=== PATIENT | female | born 1980 | race Caucasian/White ===

== ENCOUNTER 2018-08-15 11:45 | Inpatient (IN) ==
[2018-08-15] MEDS ORDERED: diphenhydrAMINE 50 MG/1 ML VIAL IM STA (12:03)
[2018-08-15] MEDS ORDERED: LORazepam 2 MG/1 ML VIAL IM STA (12:03)
[2018-08-15] MEDS ORDERED: SODIUM CHLORIDE 0.9% 1,000 ML IV STA (12:03)
[2018-08-15] MEDS ORDERED: HALOPERIDOL 5 MG/ML AMP IM STA (12:03)
[2018-08-15] MEDS ORDERED: CEFTAROLINE 600 MG in SODIUM CHLORIDE 0.9% 100 ML IV STA (12:23)
[2018-08-15 13:45] LABS: Basophils % 0.4 % (0.0-0.8); Eosinophils # 0.3 10*3/uL (0.0-0.87); Eosinophils % 3.1 % (0.00-10.9); Hematocrit 36.5 VOL% (35.7-47.0); Hemoglobin 11.9 GM/DL (12.0-16.0); Immature Granulocytes % 0.4 %; Immature Granulocytes Absolute 0.04 #; Lymphocytes # 2.1 10*3/uL (1.4-4.0); Lymphocytes % 21.3 % (21.3-54.2); Mean Corpuscular HGB Conc 32.6 GM/DL (32-36); Mean Corpuscular Hemoglobin 29 PG (27-34); Mean Corpuscular Volume 90.1 FL (87-102); Mean Platelet Volume 11.3 FL (9.6-12.0); Monocytes # 0.8 10*3/uL (0.11-0.8); Neutrophils # 6.4 10*3/uL (1.4-7.4); Neutrophils % 66.8 % (38.7-73.9); Platelet Count 367 T/CUMM (130-400); Red Blood Count 4.05 MC/CUMM (3.8-5.5); Red Cell Distribution Width 13.7 % (9.3-17.3); White Blood Count 9.6 T/CUMM (4-12)
[2018-08-15 14:00] LABS: Ammonia 26 UMOL/L (11-32)
[2018-08-15 14:12] LABS: Alanine Aminotransferase 14 U/L (13-56); Albumin 3.3 G/DL (3.4-5.0); Alkaline Phosphatase 65 U/L (45-117); Aspartate Amino Transferase 10 U/L (0-37); Blood Urea Nitrogen 15 MG/DL (7-18); Calcium 8.3 MG/DL (8.5-10.1); Glucose 85 MG/DL (74-106); Total Protein 7.1 G/DL (6.4-8.3)
[2018-08-15 14:13] LABS: Osmolality,Calculated 280.3 MOS/KG (273-304); Potassium 3.4 MMOL/L (3.5-5.1); Sodium 141 MMOL/L (136-145)
[2018-08-15 14:26] LABS: Barbiturates Screen,Urine Negative (Negative); Benzodiazepines Screen,Urine Negative (Negative); Cannabinoid Screen,Urine Negative (Negative); Opiate Screen,Urine Negative (Negative); Phencyclidine Screen,Urine Negative (Negative)
[2018-08-15] MEDS ORDERED: ACETAMINOPHEN 325 MG TABLET PO PRN (14:54)
[2018-08-15] MEDS ORDERED: ALBUTEROL 2.5 MG/3 ML NEB RESP TX PRN (14:54)
[2018-08-15] MEDS ORDERED: ONDANSETRON 4 MG/2 ML VIAL IV PRN (14:54)
[2018-08-15] MEDS ORDERED: LACTULOSE 20 GM/30 ML UDCUP PO PRN (14:54)
[2018-08-15] MEDS ORDERED: LORazepam 2 MG/1 ML VIAL IV PRN (15:19)
[2018-08-15] MEDS ORDERED: PANTOPRAZOLE 40 MG VIAL IV SCH (16:00)
[2018-08-15] MEDS: SODIUM CHLORIDE 0.9% 1,000 ML IV SCH (16:27)
[2018-08-15] MEDS ORDERED: HALOPERIDOL 5 MG TABLET PO SCH (21:00)
[2018-08-15 21:25] LABS: Apearance,Urine CLEAR (Clear); Bacteria,Urine Occasional /HPF (Few); Bilirubin,Urine Negative (Negative); Blood, Urine Negative (Negative); Glucose,Urine (UA) Negative (Negative); Ketones,Urine 20 mg/dL (Negative); Mucus,Urine Occasional /LPF (Occasional); Nitrite,Urine Negative (Negative); Protein,Urine Negative; RBC,Urine <1 /HPF (0-4); Squamous Epithelial Cell,Urine Occasional /HPF (0-10); Urine Color Yellow (Yellow); Urine Specific Gravity 1.023 (1.001-1.035); WBC,Urine 3 /HPF (0-6)
[2018-08-15] MEDS: ENOXAPARIN 40 MG/0.4 ML SYRINGE SUBCUT SCH (21:36)
[2018-08-16] MEDS: SODIUM CHLORIDE 0.9% 1,000 ML IV SCH ×3 (01:31→22:00)
[2018-08-16] MEDS: CEFTAROLINE 600 MG in SODIUM CHLORIDE 0.9% 100 ML IV SCH ×2 (02:51→15:34)
[2018-08-16 03:30] LABS: Basophils % 0.4 % (0.0-0.8); Eosinophils # 0.3 10*3/uL (0.0-0.87); Hematocrit 36.1 VOL% (35.7-47.0); Hemoglobin 11.5 GM/DL (12.0-16.0); Immature Granulocytes % 0.4 %; Immature Granulocytes Absolute 0.04 #; Lymphocytes # 1.6 10*3/uL (1.4-4.0); Lymphocytes % 15.6 % (21.3-54.2); Mean Corpuscular HGB Conc 31.9 GM/DL (32-36); Mean Corpuscular Hemoglobin 29 PG (27-34); Mean Corpuscular Volume 91.6 FL (87-102); Mean Platelet Volume 11.6 FL (9.6-12.0); Monocytes # 0.8 10*3/uL (0.11-0.8); Monocytes % 7.3 % (1.7-12.7); Neutrophils # 7.5 10*3/uL (1.4-7.4); Neutrophils % 73.3 % (38.7-73.9); Platelet Count 341 T/CUMM (130-400); Red Blood Count 3.94 MC/CUMM (3.8-5.5); Red Cell Distribution Width 13.8 % (9.3-17.3); White Blood Count 10.3 T/CUMM (4-12)
[2018-08-16 03:46] LABS: Calcium 7.6 MG/DL (8.5-10.1); Potassium 3.5 MMOL/L (3.5-5.1)
[2018-08-16] MEDS: OLANZapine 5 MG TABLET PO SCH (21:34)
[2018-08-16] MEDS: clonazePAM 0.5 MG TABLET PO SCH (21:34)
[2018-08-16] MEDS: ENOXAPARIN 40 MG/0.4 ML SYRINGE SUBCUT SCH (21:35)
[2018-08-17] MEDS: BACITRACIN OINT 0.9 GM PACK TOP SCH ×2 (00:59→09:33)
[2018-08-17] MEDS: SODIUM CHLORIDE 0.9% 1,000 ML IV SCH ×2 (00:59→11:25)
[2018-08-17] MEDS: CEFTAROLINE 600 MG in SODIUM CHLORIDE 0.9% 100 ML IV SCH ×2 (03:15→15:35)
[2018-08-17] MEDS: clonazePAM 0.5 MG TABLET PO SCH ×3 (09:34→20:44)
[2018-08-17] MEDS: LITHIUM 300 MG CAPSULE PO SCH ×2 (12:28→20:44)
[2018-08-17] MEDS: GABAPENTIN 600 MG TABLET PO SCH ×3 (12:28→20:44)
[2018-08-17] MEDS: OLANZapine 5 MG TABLET PO SCH (20:44)
[2018-08-17] MEDS: ENOXAPARIN 40 MG/0.4 ML SYRINGE SUBCUT SCH (20:44)
[2018-08-18] MEDS: SODIUM CHLORIDE 0.9% 1,000 ML IV SCH ×2 (03:40→06:09)
[2018-08-18] MEDS: CEFTAROLINE 600 MG in SODIUM CHLORIDE 0.9% 100 ML IV SCH (03:40)
[2018-08-18] MEDS: LITHIUM 300 MG CAPSULE PO SCH (08:44)
[2018-08-18] MEDS: GABAPENTIN 600 MG TABLET PO SCH (08:45)
[2018-08-18] MEDS: BACITRACIN OINT 0.9 GM PACK TOP SCH (08:45)
[2018-08-18] MEDS: clonazePAM 0.5 MG TABLET PO SCH (08:45)
[2018-08-18 11:44] VITALS: BP 135/84
== END 2018-08-18 12:55 | disposition home health service (06) | DRG 383 ==
LOC: N.ED 11:45 → SUATTDRO 14:54 → N.CC 15:29 → SUATTDRO 15:41 → N.EDINP 15:41 → N.CC 15:43 → N.3E 08-17 11:39
PROVIDERS: ADMIT Internal Medicine; ATTEND Internal Medicine